=== PATIENT | female | born 1960 | race Caucasian/White ===

== ENCOUNTER → 2018-06-11 | Day surgery (SDC) | payer OTHER ==
[2018-06-09 17:01] LABS: BASOPHILS % 0.5 % (0.0-1.0); EOSINOPHILS # (AUTO) 0.2 (0.0-0.4); EOSINOPHILS % 2.8 % (0.0-6.0); HEMATOCRIT 44.2 % (34.2-44.1); HEMOGLOBIN 14.5 g/dL (12.0-16.0); LYMPHOCYTES # (AUTO) 2.4 (1.0-3.2); LYMPHOCYTES % 29.6 % (18.0-39.1); MEAN CORPUSCULAR HEMOGLOBIN 29.1 pg (28-32); MEAN CORPUSCULAR HGB CONC 32.8 g/dL (31-35); MEAN CORPUSCULAR VOLUME 88.6 fL (81-99); MONOCYTES # (AUTO) 0.6 (0.2-0.8); MONOCYTES % 7.5 % (4.4-11.3); NEUTROPHILS # (AUTO) 4.8 (2.1-6.9); NEUTROPHILS % 59.1 % (38.7-80.0); PLATELET COUNT 170 x10e3/uL (140-360); RED BLOOD COUNT 4.99 x10e6/uL (3.6-5.1); RED CELL DISTRIBUTION WIDTH 14.4 % (11.7-14.4)
[2018-06-09 17:11] LABS: INR 0.89; PROTHROMBIN TIME 12.9 seconds (11.9-14.5)
[2018-06-09 17:12] LABS: PARTIAL THROMBOPLASTIN TIME 27.9 seconds (23.8-35.5)
[2018-06-09 17:19] LABS: ALBUMIN 4.5 g/dL (3.5-5.0); ALBUMIN/GLOBULIN RATIO 1.4 (0.8-2.0); ANION GAP 15.2 mmol/L (8-16); CALCIUM 10.4 mg/dL (8.4-10.2); CREATININE, SERUM 1.15 mg/dL (0.57-1.11); POTASSIUM 4.2 mmol/L (3.5-5.1)
--- NOTE | 2018-06-09 17:49 | Diagnostic Imaging Report ---
EXAMINATION: CHEST 2 VIEWS INDICATION: ^PREOP FOR LEFT HEART CATH PROCEDURE ^[id number] ^1705 COMPARISON: None FINDINGS: PA and lateral views TUBES and LINES: None. LUNGS: Lungs are well inflated. There is no evidence of pneumonia or pulmonary edema. PLEURA: No pleural effusion or pneumothorax. HEART AND MEDIASTINUM: The cardiomediastinal silhouette is unremarkable. BONES AND SOFT TISSUES: No acute osseous lesion. Soft tissues are unremarkable. UPPER ABDOMEN: No free air under the diaphragm. IMPRESSION: No acute thoracic abnormality. Signed by: Dr. Shahbaz Herrera MD on 06/09/2018 5:45 PM
[~2018-06-11] VITALS: Ht 162.6 cm; Wt 116.1 kg
[2018-06-11] VITALS (12 sets, daily range): BP systolic 88–130; BP diastolic 44–82
[~2018-06-11] MED LIST: AMLODIPINE BESY10 MG PO; ASPIRIN81 MG PO; ATORVASTATIN CA10 MG PO; CALCIUM 500+D1 EACH PO; CARVEDILOL12.5 MG PO; FENTANYL CITRATE/PF 100MCG/2 ML INJ ONE; FISH OIL 1,2001 EACH PO; FUROSEMIDE40 MG PO; HEPARIN SOD (PORCINE) 1000 UNIT/ML 30ML ONE; HEPARIN SOD/SOD CHLORIDE 2,000 ML ONE; INSULIN GLARGINE 100 UNITS/ML VIAL SQ ONE; INSULIN LISPRO 100 UNIT/1 ML 3ML VIAL SQ ONE; IOPAMIDOL 370 MG/ML 200 ML INFUS..BTL INJ ONE; LEVEMIR100 UNIT/1 SQ; LIDOCAINE HCL 1% LOCAL INJ 20 ML VIAL ONE; LOSARTAN POTAS100 MG PO; METFORMIN HCL500 MG PO; MIDAZOLAM HCL 2 MG/2 ML VIAL ONE; NITROGLYCERIN/D5W 200 MCG/ML 250 ML ONE; NOVOLOG SC; NOVOLOG100 UNIT/1 SC; OMEPRAZOLE40 MG PO; SERTRALINE HCL50 MG PO; SODIUM CHLORIDE 0.9% 1000ML 1,000 ML ONE; SPIRONOLACTONE50 MG PO; ULTRAM 50MG50 MG PO; VITAMIN B-122500 MCG PO; VITAMIN B12 PO; VITAMIN C250 MG PO; VITAMIN D35000 UNI1 PO
--- OUTSIDE RECORDS SUMMARY | 2018-06-11 06:26 | XMS REPORT | Continuity of Care Document ---
Author Author [facility] Interface Address Unknown Phone Unavailable Problems Problem Status Onset Date Classification Date Reported Comments Source DX: E66.01=MORBID (SEVERE) OBESITY DUE T Active 03/31/2018 [facility] UNK Active 01/28/2018 [facility] DX: SCREENING NO PAIN,NO LUMPS,NO IM Active 01/17/2018 [facility] Other complications of gastric band procedure 07/06/2017 10/07/2017 [facility] [address]- UNSPECIFIED COMPLICATION OF INTER Active 05/29/2017 [facility] M54.12 - "RADICULOPATHY, CERVICAL REGION Active 07/03/2016 [facility] Acid reflux Resolved Problem 06/05/2018 [facility] Anxiety Active Problem 06/05/2018 [facility] Back pain Active Problem 06/05/2018 [facility] BP+ - Hypertension Active Problem 06/05/2018 [facility] Cervical dysplasia Resolved Problem 06/05/2018 [facility] Closed head injury Resolved Problem 06/05/2018 [facility] CHF (<span ID="[id number]">Confirmed</span>) Resolved Problem 06/05/2018 [facility] Diabetes Resolved Problem 06/05/2018 [facility] Female stress incontinence Active Problem 06/05/2018 [facility] HLD (<span ID="[id number]">Confirmed</span>) Resolved Problem 06/05/2018 [facility] Morbid obesity Active Problem 06/05/2018 [facility] Colon polyps Resolved Problem 06/05/2018 [facility] Sleep apnea Active Problem 06/05/2018 [facility] Hypertensive heart disease with heart failure 10/07/2017 [facility] Heart failure, unspecified 10/07/2017 [facility] Type 2 diabetes mellitus without complications 10/07/2017 [facility] Personal history of transient ischemic attack , and cerebral infarction without residual deficits 10/07/2017 [facility] Medications Medication Details Route Status Patient Instructions Ordering Provider Order Date Source Insulin regular 5 unit, Route: IV, ONCE, Dosing Weight 114.545, kg, Start date: 07/01/17 11:47:00 CDT, Stop date: 07/01/17 11:47:00 CDT Inactive 07/01/2017 [facility] sugammadex (ANES) Route: IV, Drug form: SOLN, ONCE, Stop date: 07/01/17 11:34:00 CDT Inactive 07/01/2017 [facility] tramadol hydrochloride 50 MG Oral Tablet 50 mg, PO, Q4H, PRN Pain Score 1-3, X 5 day, # 24 tab, 0 Refill(s) No Longer Active 07/01/2017 [facility] tramadol hydrochloride 50 MG Oral Tablet 50 mg, 1 tab, Route: PO, Drug form: TAB, Q4H, Dosing Weight 114.545, kg, PRN Pain Score 1-3, Start date: 07/01/17 11:25:00 CDT, Duration: 30 day, Stop date: 07/31/17 11:24:00 CDTNotes: Not to exceed 400mg/day. (Same As: Ultram) No Longer Active 07/01/2017 [facility] ketOROLAC (ANES) IM, ONCE Inactive 07/01/2017 [facility] meperidine (ANES) Route: IM, Drug form: INJ, ONCE, Stop date: 07/01/17 11:19:00 CDT Inactive 07/01/2017 [facility] ondansetron (ANES) Route: IV, Drug form: INJ, ONCE, Stop date: 07/01/17 11:14:00 CDT Inactive 07/01/2017 [facility] phenylephrine (ANES) Route: IV, Drug form: INJ, ONCE, Stop date: 07/01/17 11:09:00 CDT Inactive 07/01/2017 [facility] dexamethasone (ANES) Route: IV, Drug form: INJ, ONCE, Stop date: 07/01/17 11:04:00 CDT Inactive 07/01/2017 [facility] Ondansetron 4 mg, 2 mL, Route: IVP, Drug form: INJ, ONCE, Dosing Weight 114.545, kg, PRN Nausea & Vomiting, Start date: 07/01/17 11:01:00 CDTNotes: (Same as: Zofran) MEDICATION WASTE Product Size: 4 mg Product Wasted: ___ mg No Longer Active 07/01/2017 [facility] Flumazenil 0.2 mg, 2 mL, Route: IVP, Drug form: INJ, PRN, Dosing Weight 114.545, kg, PRN Benzodiazepine Reversal, Initial dose, Start date: 07/01/17 11:01:00 CDT, Duration: 30 day, Stop date: 07/31/17 11:00:00 CDTNotes: (Same as: Romazicon) No Longer Active 07/01/2017 [facility] Naloxone 0.4 mg, 1 mL, Route: IVP, Drug form: INJ, Q2MIN, Dosing Weight 114.545, kg, PRN Narcotic Reversal, Start date: 07/01/17 11:01:00 CDT, Duration: 8 doses or times, Stop date: Limited # of timesNotes: Same as Narcan No Longer Active 07/01/2017 [facility] Morphine 4 mg, 1 mL, Route: IVP, Drug form: SOLN, Q5Min, Dosing Weight 114.545, kg, PRN Pain Score 7-10, Start date: 07/01/17 11:01:00 CDT, Duration: 3 doses or times, Stop date: Limited # of timesNotes: (Same as:MORPhine Sulfate) No Longer Active 07/01/2017 [facility] Hydralazine 10 mg, 0.5 mL, Route: IVP, Drug form: INJ, Q20Min, Dosing Weight 114.545, kg, PRN Elevated BP, Start date: 07/01/17 11:01:00 CDT, Duration: 2 doses or times, Stop date: Limited # of timesNotes: (Same as: Apresoline) Push over 5 minutes No Longer Active 07/01/2017 [facility] Labetalol 10 mg, 2 mL, Route: IVP, Drug form: INJ, Q5Min, Dosing Weight 114.545, kg, PRN Elevated BP, Start date: 07/01/17 11:01:00 CDT, Duration: 5 doses or times, Stop date: Limited # of timesNotes: (Same as: N ormodyne, Trandate) Push over 2 minutes Give bolus over 2-3 minutes. No Longer Active 07/01/2017 [facility] Hydromorphone 0.5 mg, 0.25 mL, Route: IVP, Drug form: INJ, Q5Min, Dosing Weight 114.545, kg, PRN Pain Score 7-10, Start date: 07/01/17 11:01:00 CDT, Duration: 4 doses or times, Stop date: Limited # of timesNotes: Same as Dilaudid No Longer Active 07/01/2017 [facility] succinylcholine (ANES) Route: IV, Drug form: INJ, ONCE, Stop date: 07/01/17 10:59:00 CDT Inactive 07/01/2017 [facility] fentaNYL (ANES) Route: IV, Drug form: INJ, ONCE, Stop date: 07/01/17 10:59:00 CDT Inactive 07/01/2017 [facility] propofol (ANES) Route: IV, Drug form: INJ, ONCE, Stop date: 07/01/17 10:59:00 CDT Inactive 07/01/2017 [facility] midazolam (ANES) Route: IV, Drug form: SOLN, ONCE, Stop date: 07/01/17 10:59:00 CDT Inactive 07/01/2017 [facility] rocuronium (ANES) Route: IV, Drug form: INJ, ONCE, Stop date: 07/01/17 10:59:00 CDT Inactive 07/01/2017 [facility] Clindamycin 900 mg, Route: IV, ONCE, Dosing Weight 114.545, kg, Start date: 07/01/17 10:07:00 CDT, Stop date: 07/01/17 10:07:00 CDT, ABX Indication: Surgical Prophylaxis Inactive 07/01/2017 [facility] acetaminophen (ANES) 10 mg Route: IV, Drug form: INJ, Start date: 07/01/17 10:07:00 CDT, Stop date: 07/01/17 11:07:00 CDT Inactive 07/01/2017 [facility] Sodium Chloride 0.9% IV (ANES) 1000 mL Route: IV, Total Volume: 1,000, Start date: 07/01/17 10:00:00 CDT, Stop date: 07/01/17 11:00:00 CDT Inactive 07/01/2017 [facility] Insulin regular 5 unit, Route: IV, ONCE, Dosing Weight 114.545, kg, Start date: 07/01/17 9:24:00 CDT, Stop date: 07/01/17 9:24:00 CDT Inactive 07/01/2017 [facility] Calcium Carbonate 1250 MG / Cholecalciferol 125 UNT Oral Tablet 1 tab, PO, TID, 0 Refill(s) Active 07/01/2017 [facility] metFORMIN 500 mg oral tablet, extended release 1000, PO, BID-Meals, # 60 tab, 1 Refill(s) Active 06/24/2017 [facility] Aspirin 81 MG Chewable Tablet 81 mg=1 tab, PO, Daily, tab, 0 Refill(s) Active 06/24/2017 [facility] tramadol hydrochloride 50 MG Oral Tablet 50 mg=1 tab, PO, Q8H, PRN Pain, # 60 tab, 0 Refill(s) Active 06/24/2017 [facility] spironolactone 50 mg oral tablet 50 mg=1 tab, PO, Daily, # 30 tab, 1 Refill(s) Active 06/24/2017 [facility] Furosemide 20 MG Oral Tablet 20 mg=1 tab, PO, Daily, # 30 tab, 0 Refill(s) Active 06/24/2017 [facility] carvedilol 25 mg oral tablet 25 mg=1 tab, PO, BID, # 180 tab, 0 Refill(s) Active 06/24/2017 [facility] atorvastatin 10 mg oral tablet 10 mg=1 tab, PO, Bedtime, # 30 tab, 0 Refill(s) Active 06/24/2017 [facility] Allergies, Adverse Reactions, Alerts Substance Category Reaction Severity Reaction type Status Date Reported Comments Source penicillins Assertion Drug allergy Active [facility] Immunizations Immunization Date Given Site Status Last Updated Comments Source Results Order Name Results Value Reference Range Date Interpretation Comments Source Breast Mammo Scrn RUBÉN w ivone incl CAD MA Breast Mammo Scrn RUBÉN w ivone incl CAD MA BILATERAL DIGITAL SCREENING MAMMOGRAM 3D/2D WITH CAD: 01/31/2018 CLINICAL: /Routine. Current study was evaluated with a Computer Aided Detection (CAD) system. COMPARISON:Exam is read without the benefit of comparison films. The patient states her prior exams were performed at our facility however we have no record of mammographic exams for this patient. TECHNIQUE: Digital Breast Tomosynthesis was performed and utilized for Interpretation. Black Oceana Version 1.3 was utilized for computer aided detection. FINDINGS: The tissue of both breasts is almost entirely fat. There are benign calcifications in both breasts. No significant masses, calcifications, or other findings are seen in either breast. IMPRESSION: BENIGN RECOMMENDATION:There is no mammographic evidence of malignancy. A 1 year screening mammogram is recommended.(02/01/2019) SUMMARY: Prior mammograms would be of added benefit to document lobsterman stability. This aids in establishing benignity. The patient should make additional efforts to locate her prior exams. An addendum will be made if additional films are provided. This exam was interpreted at [id number] for [facility]. Juanita castillo/virgen:01/31/2018 14:00:08 [employer] Supervisor(s): Ruth [facility] letter sent: BI-RADS 1/2 Mammogram BI-RADS: 2 Benign 01/31/2018 - - Read by: Juanita Salas MD Dictated Date/time: 01/31/18 14:00 Electronically Signed by: Juanita Salas MD 01/31/18 14:00 FINAL REPORT [facility] CHEM PANEL Glucose Lvl 153 mg/dL 70 - 99 06/24/2017 [facility] ELECTROLYTES Sodium Lvl 142 meq/L 135 - 145 06/24/2017 [facility] ELECTROLYTES Potassium Lvl 4.1 meq/L 3.5 - 5.1 06/24/2017 [facility] HEMATOLOGY Hct 42.9 % 36.0 - 48.0 06/24/2017 [facility] HEMATOLOGY Hgb 14.2 g/dL 12.0 - 16.0 06/24/2017 [facility] Chest 2 views DX Chest 2 views DX : 1960. TECHNIQUE: PA and lateral views of the chest. Comparison: None. CLINICAL HISTORY: Coughing - coughing. Heart size: Normal. Lungs: No acute consolidation. Pleura: No pleural effusion. No pneumothorax. Mediastinum and oumou: Unremarkable. Musculoskeletal: Unremarkable. Support tubings: There is a gastric lap band at the edge of the image. The phi angle is about 57 degrees.. IMPRESSION: 1. No active disease in the chest. No evidence for pneumonia. 06/24/2017 - - Read by: Mauro Quintero MD Dictated Date/time: 06/24/17 15:41 Electronically Signed by: Mauro Quintero MD 06/24/17 15:42 FINAL REPORT [facility] Vital Signs Vital Sign Value Date Comments Source Respitory Rate 11 07/01/2017 [facility] Systolic (mm Hg) 97 07/01/2017 [facility] Diastolic (mm Hg) 61 07/01/2017 [facility] Respitory Rate 9 07/01/2017 [facility] Systolic (mm Hg) 97 07/01/2017 [facility] Diastolic (mm Hg) 61 07/01/2017 [facility] Respitory Rate 19 07/01/2017 [facility] Systolic (mm Hg) 73 07/01/2017 [facility] Diastolic (mm Hg) 63 07/01/2017 [facility] Heart Rate 78 07/01/2017 [facility] BMI Calculated 43.35 06/24/2017 [facility] Weight 114.545 06/24/2017 [facility] Height 162.56 cm 06/24/2017 [facility] Encounters Location Location Details Encounter Type Encounter Number Reason For Visit Attending Provider ADM Date DC Date Status Source [facility] [id number] Trev Carlos 07/01/2017 07/01/2017 [facility] Rec[facility]ring [id number] Romulo Rawls 05/05/2018 06/04/2018 [facility] Procedures Procedure Code Date Perfomer Comments Source Esophagogastroduodenoscopy [id number] 02/06/2018 [facility] [id number] [facility] Appendectomy [id number] [facility] Dental operation [id number] [facility] Endarterectomy [id number] [facility] Hysterectomy [id number] [facility] Laparoscopic adjustable gastric banding [id number] [facility] Laparoscopy<sup>1</sup> 81030741 X 2. [facility] Miscellaneous operations<sup>2</sup> [id number] Lap. gastric band. [facility] Operation [id number] [facility] [id number] [facility] Appendectomy [id number] [facility] Dental operation [id number] [facility] Hysterectomy [id number] [facility] Laparoscopic adjustable gastric banding [id number] [facility] Laparoscopy<sup>1</sup> 87696255 X 2. [facility] Miscellaneous operations<sup>2</sup> 432669685 Lap. gastric band. [facility]
--- OUTSIDE RECORDS SUMMARY | 2018-06-11 06:26 | XMS REPORT | Summary of Care ---
Author Author [facility] Organization [facility] Address Unknown Phone Unavailable Encounter HQ Dejah(FIN) [id number] Date(s): 05/05/18 - 06/03/18 [facility] [address] [place] [address]- [phone] Discharge Disposition: Home or Self Care Attending Physician: Romulo Rawls MD Referring Physician: Romulo Rawls MD Vital Signs No data available for this section Problem List Condition Effective Dates Status Health Status Informant Acid Resolved reflux(Confirmed) Anxiety(Confirmed) Active Back pain(Confirmed) Active BP+ - Active Hypertension(Confirm ed) Cervical Resolved dysplasia(Confirmed) Closed head Resolved injury(Confirmed) CHF (congestive Resolved heart failure)(Confirmed) Diabetes(Confirmed) Resolved Female stress Active incontinence(Confirm ed) HLD Resolved (hyperlipidemia)(Con firmed) Morbid Active obesity(Confirmed) Colon Resolved polyps(Confirmed) Sleep Active apnea(Confirmed) Allergies, Adverse Reactions, Alerts Substance Reaction Severity Status penicillins Active Medications No data available for this section Results No data available for this section Immunizations No data available for this section Procedures Procedure Date Related Diagnosis Body Site Status Esophagogastroduodenoscopy 02/06/18 Completed Completed Appendectomy Completed Dental operation Completed Endarterectomy Completed Hysterectomy Completed Laparoscopic adjustable gastric banding Completed Laparoscopy1 Completed Miscellaneous operations2 Completed Operation Completed 1X 2. 2Lap. gastric band. Social History Social History Type Response Employment/School Other: never a smoker. Alcohol Current, Type Wine. Frequency: 1-2 times per month. Previous treatment: None. Smoking Status Never smoker; Type: Cigarettes; Exposure to Tobacco Smoke None; Cigarette Smoking Last 365 Days No; Reg Smoking Cessation Counseling No1, 2 entered on: 02/06/18 1Stopped smoking when she was 35 2never a smoker Assessment and Plan No data available for this section
--- OUTSIDE RECORDS SUMMARY | 2018-06-11 06:27 | XMS REPORT ---
Author Author [facility] Address Unknown Phone Unavailable Care Team Providers Care Ophthalmic Surgeon Name Role Phone JULIETH JAY Unavailable Unavailable Payers Payer Name Policy Type Policy Number Effective Date Expiration Date Problems This patient has no known problems. Allergies, Adverse Reactions, Alerts Allergy Name Allergy Type Status Severity Reaction(s) Onset Date Inactive Date Treating Clinician Comments Penicillins DA Active [facility] 2015-07-07 00:00:00 Medications This patient has no known medications. Results Test Description Test Time Test Comments Text Results Atomic Results Result Comments CHEST 2 VIEWS 2018-06-09 17:45:00 [place] [address] Patient Name: CHUCK MCCALL MR #: [id number] : 1960 Age/Sex: 57/F Req #: [id number] Adm Physician: Ordered by: JULIETH JAY MD Report #: [id number] Location: [facility] Room/Bed: Procedure: [id number] DX/CHEST 2 VIEWS Exam Date: 06/09/18 Exam Time: 6035 REPORT STATUS: Signed EXAMINATION: CHEST 2 VIEWS INDICATION: PRE OP FOR LEFT HEART CATH PROCEDURE [id number] COMPARISON: None FINDINGS: PA and lateral views TUBES and LINES: None. LUNGS: Lungs are well inflated. There is no evidence of pneumonia or pulmonary edema. PLEURA: No pleural effusion or pneumothorax. HEART AND MEDIASTINUM: The cardiomediastinal silhouette is unremarkable. BONES AND SOFT TISSUES: No acute osseous lesion. Soft tissues are unremarkable. UPPER ABDOMEN: No free air under the diaphragm. IMPRESSION: No acute thoracic abnormality. Signed by: Dr. Shahbaz Herrera MD on 06/09/2018 5:45 PM Dictated By: SHAHBAZ HERRERA MD 44 Transcribed By: FABIEN on 06/09/181744 COPY TO: JULIETH JAY MD
--- OUTSIDE RECORDS SUMMARY | 2018-06-11 06:27 | XMS REPORT | Summary of Care ---
Author Author [facility] Organization [facility] Address Unknown Phone Unavailable Encounter SIMRAN Pond(FIN) [id number] Date(s): 07/01/17 - 07/01/17 [place] [id number] [facility] [place] [address]- Encounter Diagnosis Other complications of gastric band procedure (Final) - 07/05/17 Hypertensive heart disease with heart failure (Final) - Heart failure, unspecified (Final) - Type 2 diabetes mellitus without complications (Final) - Personal history of transient ischemic attack (TIA), and cerebral infarction wit hout residual deficits (Final) - Discharge Disposition: Home or Self Care Attending Physician: Trev Gonzalez MD Referring Physician: Trev Gonzalez MD Vital Signs 1 2 3 Most recent to oldest [Reference Range]: 162.56 cm (06/24/17 2:01 PM) Height 97/61 mmHg (07/01/17 12:45 PM) 97/61 mmHg (07/01/17 12:30 PM) 73/63 mmHg *LOW* (07/01/17 12:15 PM) Blood Pressure [90-140/60-90 mmHg] 11 BRMIN *LOW* (07/01/17 12:45 PM) 9 BRMIN *LOW* (07/01/17 12:30 PM) 19 BRMIN (07/01/17 12:15 PM) Respiratory Rate [14-20 BRMIN] 78 bpm (07/01/17 8:54 AM) Peripheral Pulse Rate [60-100 bpm] 114.545 kg (06/24/17 2:01 PM) Weight 43.35 m2 (06/24/17 2:01 PM) Body Mass Index Problem List Condition Effective Dates Status Health Status Informant Acid Resolved reflux(Confirmed) Anxiety(Confirmed) Active Back pain(Confirmed) Active BP+ - Active Hypertension(Confirm ed) Cervical Resolved dysplasia(Confirmed) Closed head Resolved injury(Confirmed) Female stress Active incontinence(Confirm ed) Morbid Active obesity(Confirmed) Sleep Active apnea(Confirmed) Allergies, Adverse Reactions, Alerts Substance Reaction Severity Status penicillins Active Medications acetaminophen (ANES) 10 mg Route: IV, Drug form: INJ, Start date: 07/01/17 10:07:00 CDT, Stop date: 8 11:07:00 CDT Start Date: 07/01/17 Stop Date: 07/01/17 Status: Completed ANES flumazenil 0.2 mg, 2 mL, Route: IVP, Drug form: INJ, PRN, Dosing Weight 114.545, kg, PRN Be nzodiazepine Reversal, Initial dose, Start date: 07/01/17 11:01:00 CDT, Duration : 30 day, Stop date: 07/31/17 11:00:00 CDT Notes: (Same as: Romazicon) Start Date: 07/01/17 Stop Date: 07/02/17 Status: Discontinued ANES hydrALAZINE 10 mg, 0.5 mL, Route: IVP, Drug form: INJ, Q20Min, Dosing Weight 114.545, kg, ID N Elevated BP, Start date: 07/01/17 11:01:00 CDT, Duration: 2 doses or times, St op date: Limited # of times Notes: (Same as: Apresoline)Push over 5 minutes Start Date: 07/01/17 Stop Date: 07/02/17 Status: Discontinued ANES HYDROmorphone 0.5 mg, 0.25 mL, Route: IVP, Drug form: INJ, Q5Min, Dosing Weight 114.545, kg, P RN Pain Score 7-10, Start date: 07/01/17 11:01:00 CDT, Duration: 4 doses or time s, Stop date: Limited # of times Notes: Same as Dilaudid Start Date: 07/01/17 Stop Date: 07/02/17 Status: Discontinued ANES labetalol 10 mg, 2 mL, Route: IVP, Drug form: INJ, Q5Min, Dosing Weight 114.545, kg, PRN E levated BP, Start date: 07/01/17 11:01:00 CDT, Duration: 5 doses or times, Stop date: Limited # of times Notes: (Same as: Normodyne, Trandate)Push over 2 minutes Give bolus over 2-3 mi nutes. Start Date: 07/01/17 Stop Date: 07/02/17 Status: Discontinued ANES morphine Sulfate 4 mg, 1 mL, Route: IVP, Drug form: SOLN, Q5Min, Dosing Weight 114.545, kg, PRN P ain Score 7-10, Start date: 07/01/17 11:01:00 CDT, Duration: 3 doses or times, S top date: Limited # of times Notes: (Same as:MORPhine Sulfate) Start Date: 07/01/17 Stop Date: 07/02/17 Status: Discontinued ANES naloxone 0.4 mg, 1 mL, Route: IVP, Drug form: INJ, Q2MIN, Dosing Weight 114.545, kg, PRN Narcotic Reversal, Start date: 07/01/17 11:01:00 CDT, Duration: 8 doses or times , Stop date: Limited # of times Notes: Same as Narcan Start Date: 07/01/17 Stop Date: 07/02/17 Status: Discontinued ANES ondansetron 4 mg, 2 mL, Route: IVP, Drug form: INJ, ONCE, Dosing Weight 114.545, kg, PRN Ervin sea & Vomiting, Start date: 07/01/17 11:01:00 CDT Notes: (Same as: Cyrus) MEDICATION WASTE Product Size: 4 mgProduct Was salvador: ___ mg Start Date: 07/01/17 Stop Date: 07/02/17 Status: Discontinued aspirin 81 mg tablet, chewable 81 mg=1 tab, PO, Daily, tab, 0 Refill(s) Start Date: 06/24/17 Status: Ordered atorvastatin 10 mg oral tablet 10 mg=1 tab, PO, Bedtime, # 30 tab, 0 Refill(s) Start Date: 06/24/17 Status: Ordered calcium-vitamin D 500 mg-125 units oral tablet 1 tab, PO, TID, 0 Refill(s) Start Date: 07/01/17 Status: Ordered carvedilol 25 mg oral tablet 25 mg=1 tab, PO, BID, # 180 tab, 0 Refill(s) Start Date: 06/24/17 Status: Ordered clindamycin 900 mg, Route: IV, ONCE, Dosing Weight 114.545, kg, Start date: 07/01/17 10:07:0 0 CDT, Stop date: 07/01/17 10:07:00 CDT, ABX Indication: Surgical Prophylaxis Start Date: 07/01/17 Stop Date: 07/01/17 Status: Completed dexamethasone (ANES) Route: IV, Drug form: INJ, ONCE, Stop date: 07/01/17 11:04:00 CDT Start Date: 07/01/17 Stop Date: 07/01/17 Status: Completed fentaNYL (ANES) Route: IV, Drug form: INJ, ONCE, Stop date: 07/01/17 10:59:00 CDT Start Date: 07/01/17 Stop Date: 07/01/17 Status: Completed furosemide 20 mg oral tablet 20 mg=1 tab, PO, Daily, # 30 tab, 0 Refill(s) Start Date: 06/24/17 Status: Ordered Insulin regular 5 unit, Route: IV, ONCE, Dosing Weight 114.545, kg, Start date: 07/01/17 9:24:00 CDT, Stop date: 07/01/17 9:24:00 CDT Start Date: 07/01/17 Stop Date: 07/01/17 Status: Completed Insulin regular 5 unit, Route: IV, ONCE, Dosing Weight 114.545, kg, Start date: 07/01/17 11:47:0 0 CDT, Stop date: 07/01/17 11:47:00 CDT Start Date: 07/01/17 Stop Date: 07/01/17 Status: Completed ketOROLAC (ANES) IM, ONCE Start Date: 07/01/17 Stop Date: 07/01/17 Status: Completed ketOROLAC (ANES) IV, ONCE Start Date: 07/01/17 Stop Date: 07/01/17 Status: Completed meperidine (ANES) Route: IM, Drug form: INJ, ONCE, Stop date: 07/01/17 11:19:00 CDT Start Date: 07/01/17 Stop Date: 07/01/17 Status: Completed metFORMIN 500 mg oral tablet, extended release 1000, PO, BID-Meals, # 60 tab, 1 Refill(s) Start Date: 06/24/17 Status: Ordered midazolam (ANES) Route: IV, Drug form: SOLN, ONCE, Stop date: 07/01/17 10:59:00 CDT Start Date: 07/01/17 Stop Date: 07/01/17 Status: Completed ondansetron (ANES) Route: IV, Drug form: INJ, ONCE, Stop date: 07/01/17 11:14:00 CDT Start Date: 07/01/17 Stop Date: 07/01/17 Status: Completed phenylephrine (ANES) Route: IV, Drug form: INJ, ONCE, Stop date: 07/01/17 11:09:00 CDT Start Date: 07/01/17 Stop Date: 07/01/17 Status: Completed propofol (ANES) Route: IV, Drug form: INJ, ONCE, Stop date: 07/01/17 10:59:00 CDT Start Date: 07/01/17 Stop Date: 07/01/17 Status: Completed rocuronium (ANES) Route: IV, Drug form: INJ, ONCE, Stop date: 07/01/17 10:59:00 CDT Start Date: 07/01/17 Stop Date: 07/01/17 Status: Completed Sodium Chloride 0.9% IV (ANES) 1000 mL Route: IV, Total Volume: 1,000, Start date: 07/01/17 10:00:00 CDT, Stop date: 11:00:00 CDT Start Date: 07/01/17 Stop Date: 07/01/17 Status: Completed spironolactone 50 mg oral tablet 50 mg=1 tab, PO, Daily, # 30 tab, 1 Refill(s) Start Date: 06/24/17 Stop Date: 07/24/17 Status: Ordered succinylcholine (ANES) Route: IV, Drug form: INJ, ONCE, Stop date: 07/01/17 10:59:00 CDT Start Date: 07/01/17 Stop Date: 07/01/17 Status: Completed sugammadex (ANES) Route: IV, Drug form: SOLN, ONCE, Stop date: 07/01/17 11:34:00 CDT Start Date: 07/01/17 Stop Date: 07/01/17 Status: Completed tramadol 50 mg oral tablet 50 mg, 1 tab, Route: PO, Drug form: TAB, Q4H, Dosing Weight 114.545, kg, PRN Odilon n Score 1-3, Start date: 07/01/17 11:25:00 CDT, Duration: 30 day, Stop date: 11:24:00 CDT Notes: Not to exceed 400mg/day. (Same As: Ultram) Start Date: 07/01/17 Stop Date: 07/02/17 Status: Discontinued tramadol 50 mg oral tablet 50 mg, PO, Q4H, PRN Pain Score 1-3, X 5 day, # 24 tab, 0 Refill(s) Start Date: 07/01/17 Stop Date: 07/06/17 Status: Completed tramadol 50 mg oral tablet 50 mg=1 tab, PO, Q8H, PRN Pain, # 60 tab, 0 Refill(s) Start Date: 06/24/17 Stop Date: 07/14/17 Status: Ordered Results ELECTROLYTES Most recent to 1 oldest [Reference Range]: Sodium Lvl [135-145 142 mEq/L mEq/L] (06/24/17 2:35 PM) Potassium Lvl 4.1 mEq/L [3.5-5.1 mEq/L] (06/24/17 2:35 PM) CHEM PANEL Most recent to 1 oldest [Reference Range]: Glucose Lvl [70-99 153 mg/dL mg/dL] *HI* (06/24/17 2:35 PM) HEMATOLOGY Most recent to 1 oldest [Reference Range]: Hgb [12.0-16.0 g/dL] 14.2 g/dL (06/24/17 2:35 PM) Hct [36.0-48.0 %] 42.9 % (06/24/17 2:35 PM) Immunizations No data available for this section Procedures Procedure Date Related Diagnosis Body Site Status Completed Appendectomy Completed Dental operation Completed Hysterectomy Completed Laparoscopic adjustable gastric banding Completed Laparoscopy1 Completed Miscellaneous operations2 Completed 1X 2. 2Lap. gastric band. Social History Social History Type Response Employment/School Other: never a smoker. Smoking Status Never smoker; Exposure to Tobacco Smoke None; Cigarette Smoking Last 365 Days No; Reg Smoking Cessation Counseling No1 entered on: 07/01/17 1never a smoker Assessment and Plan No data available for this section
--- NOTE | 2018-06-11 10:00 | NUR ---
1000A Received pt in Rm #9 Identifier x2 hand off from [facility]. [facility] (Dr Thornton)no fix good Rx med Ok, release for gastric surgery. PEERLA Back to back to baseline orientation. Resp shallow with periods 89 while asleep has hx using bi-pap at home. )2 per nc 2lmn given Checked pt glucose 250 refining medicaton aware pt cannot take metformin for 3DAYS diet ordered and waiting reported to MD. Abdomen soft non tender denies necessity to defecate or urinate. Bilateral femoral pulses present. Rt Femoral dressing intact vascade site. iv infusing left arm 75chr 0.9 NS No s/s infiltration. mary beth/rn
--- NOTE | 2018-06-11 13:00 | NUR ---
Notified Rx has no Levimer or Novolog in hosp at this time . Ok to give insulin from home . will bring MD aware Bs 250.Ate well diet.denies c/o Cp or SOB Rt leg vascade site w/o hematoma or bleeding.ds/rn
--- NOTE | 2018-06-11 14:00 | NUR ---
1400 Stable vs and ekg POC discussed with and copies with pt aware importanc ef/o care with Iv remove dsite w/o s/s infiltration. To car with [facility] employee escort denies CP sob Has rt groin dressing dry and intact. 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 Insulin given by brought insulin med for hometo cover 250 glucose and meal at hospital.
--- NOTE | 2018-06-11 18:33 | Operative Report ---
DATE OF PROCEDURE: 06/11/2018 SURGEON: Kendrick Thornton MD PROCEDURE: Cardiac catheterization. INDICATION: Chest pain and abnormal stress test. ANESTHESIA: A 2% lidocaine to local anesthesia. Fentanyl and Versed for conscious sedation. BLOOD LOSS: 2 mL. DESCRIPTION OF PROCEDURE: After informed consent, the patient was brought to the cardiac catheterization laboratory and placed on table. Both groins were painted and draped in a sterile fashion. Lidocaine was injected in right groin for local anesthesia. Right femoral artery was accessed by a Seldinger technique and a 5-Bahraini sheath was placed in the right femoral artery. Left main was cannulated using a JL4 5-Bahraini catheter. Coronary angiogram was performed and images were obtained in multiple views. Right coronary artery was cannulated using a 3DRC 5-Bahraini catheter. Coronary angiogram was performed and images were obtained in multiple views. LV gram was performed using a pigtail catheter. A sheathogram was performed. Arteriotomy site was closed using a Vascade closure device. REPORT: 1. Left main; normal caliber, no significant stenosis. 2. Left anterior descending; this is tortuous vessel with some luminal irregularities. 3. Left circumflex; normal caliber and has mid 50% lesion. 4. Right coronary artery; normal caliber, 20% to 30% mid lesion and 30% distal lesion. 5. LV graft; preserved LV function, overall ejection fraction of 50% to 55%. HEMODYNAMICS: Aortic pressure 145/45, LV pressure 145/7, LVEDP is 20. PLAN: Medical management. Kendrick Thornton MD SC/MODL /[id number]
== END | disposition home or self-care (01) ==
LOC: CATH LAB 06:24
DX: I25.10 Atherosclerotic heart disease of native coronary artery without angina pectoris (principal); R94.39 Abnormal result of other cardiovascular function study; R94.31 Abnormal electrocardiogram [ECG] [EKG]; I11.0 Hypertensive heart disease with heart failure; I50.32 Chronic diastolic (congestive) heart failure; E78.5 Hyperlipidemia, unspecified; E13.9 Other specified diabetes mellitus without complications; K21.9 Gastro-esophageal reflux disease without esophagitis; E66.9 Obesity, unspecified; Z88.0 Allergy status to penicillin; Z88.8 Allergy status to other drugs, medicaments and biological substances; Z01.810 Encounter for preprocedural cardiovascular examination; Z01.812 Encounter for preprocedural laboratory examination; Z01.818 Encounter for other preprocedural examination; Z79.82 Long term (current) use of aspirin; Z79.4 Long term (current) use of insulin; Z68.41 Body mass index [BMI] 40.0-44.9, adult
CPT/HCPCS: 36415; 71046; 80053; 85025; 85610; 85730; 93005; 93458; C1760; J1644; J2001; J2250; J7030; Q9967; J1815